=== PATIENT | female | born 1950 | race Caucasian/White ===

== ENCOUNTER 2019-03-28 17:40 | Emergency (ER) | payer OTHER ==
[~2019-03-28] VITALS: Ht 165.1 cm; Wt 52.2 kg
[~2019-03-28 17:40] MED LIST: LEVSOD100 PO; LOSA25 PO; METO25ER PO; VENL150ER PO
[2019-03-28 18:32] LABS: BASOPHILS ABSOLUTE AUTO 0.06 K/mm3 (0.00-0.23); BASOPHILS PERCENT AUTO 1 % (0-2); EOSINOPHILS ABSOLUTE AUTO 0.38 K/mm3 (0.00-0.68); EOSINOPHILS PERCENT AUTO 6 % (0-6); Hematocrit 48.1 % (33.0-51.0); Hemoglobin 16.5 g/dL (11.5-16.0); IMMATURE GRAN ABSOLUTE AUTO 0.02 K/mm3 (0.00-0.10); IMMATURE GRAN PERCENT AUTO 0 % (0-1); LYMPHOCYTES ABSOLUTE AUTO 2.23 K/mm3 (0.84-5.20); LYMPHOCYTES PERCENT AUTO 36 % (21-46); MONOCYTES PERCENT AUTO 7 % (4-13); Mean Corpuscular HGB 31.8 pg (26.0-34.0); Mean Corpuscular HGB Conc 34.3 g/dL (31.5-36.5); Mean Corpuscular Volume 93 fL (80-100); Mean Platelet Volume 9.7 fL (9.1-12.4); NEUTROPHILS ABSOLUTE AUTO 3.11 K/mm3 (1.96-9.15); NEUTROPHILS PERCENT AUTO 50 % (41-73); Platelet Count 259 K/mm3 (150-400); RDW Coefficient Variation 12.4 % (11.7-14.2); RDW Standard Deviation 42.8 fL (35.1-46.3); Red Blood Cell Count 5.19 M/mm3 (3.80-5.20)
[2019-03-28] MEDS ORDERED: Prednisone20 MG PO (18:44)
[2019-03-28] MEDS ORDERED: ALBU90OI INH (18:44)
[2019-03-28] MEDS ORDERED: Atrovent Inha12.9 GM INH (18:44)
[2019-03-28 18:54] LABS: Alanine Aminotransfer (ALT/SGP 17 U/L (12-78); Albumin, Blood 3.6 g/dL (3.4-5.0); Albumin/Globulin Ratio 1.1 (0.8-1.8); Alk Phos 120 U/L (50-136); Anion Gap 4 mmol/L (6-16); Aspartate Aminotrans (AST/SGOT 14 U/L (12-37); Bilirubin, Total 0.4 mg/dL (0.1-1.0); Blood Urea Nitrogen 8 mg/dL (8-24); Bun/Creatinine Ratio 9.4 (12.0-20.0); CO2, Blood 26 mmol/L (21-32); Calcium, Blood 9.2 mg/dL (8.5-10.1); Chloride, Blood 109 mmol/L (98-108); Creatinine, Blood 0.85 mg/dL (0.40-1.00); Globulin, Blood 3.4 g/dL (2.2-4.0); Glomerular Filtration Rate >60 (60-); Glucose, Blood 115 mg/dL (70-99); Potassium, Blood 4.1 mmol/L (3.5-5.5); Sodium, Blood 139 mmol/L (136-145); Troponin I 0.017 ng/mL (0.000-0.040)
== END 2019-03-28 19:54 | disposition home or self-care (01) ==
LOC: ER 17:40
PROVIDERS: Emergency Medicine
DX: J44.1 Chronic obstructive pulmonary disease with (acute) exacerbation (principal); E03.9 Hypothyroidism, unspecified; I10 Essential (primary) hypertension; F32.9 Major depressive disorder, single episode, unspecified; Z79.899 Other long term (current) drug therapy; Z87.891 Personal history of nicotine dependence; Z88.0 Allergy status to penicillin
CPT/HCPCS: 36415; 71046; 80053; 83880; 84484; 85025; 93005; 93010; 94640; 99284-25; J1100

== ENCOUNTER 2025-04-19 07:17 | Observation (INO) | payer OTHER ==
[~2025-04-19] VITALS: Ht 165.1 cm; Wt 46.2 kg
[~2025-04-19 07:17] MED LIST changes: +ACET500 PO; +AIRSUPRA 90-810.7 GM IH; +ALBU90OI INH; +ASPI81CH PO; +ATROVENT HFA12.9 GM INH; +Atrovent Inha12.9 GM INH; +DILT-XR120 M2 PO; +DULOXETINE HCL60 M1 PO; +EUTHYROX50 MC1 PO; +FORMOTEROL20 MCG/2 M INH; +Prednisone20 MG PO
[2025-04-19 08:23] LABS: BASOPHILS ABSOLUTE AUTO 0.04 K/mm3 (0.00-0.23); BASOPHILS PERCENT AUTO 1 % (0-2); EOSINOPHILS ABSOLUTE AUTO 0.24 K/mm3 (0.00-0.68); EOSINOPHILS PERCENT AUTO 3 % (0-6); Hematocrit 42.2 % (33.0-51.0); Hemoglobin 14.1 g/dL (11.5-16.0); IMMATURE GRAN ABSOLUTE AUTO 0.06 K/mm3 (0.00-0.10); IMMATURE GRAN PERCENT AUTO 1 % (0-1); LYMPHOCYTES ABSOLUTE AUTO 1.25 K/mm3 (0.84-5.20); LYMPHOCYTES PERCENT AUTO 16 % (21-46); MONOCYTES ABSOLUTE AUTO 0.35 K/mm3 (0.16-1.47); MONOCYTES PERCENT AUTO 4 % (4-13); Mean Corpuscular HGB Conc 33.4 g/dL (31.5-36.5); Mean Corpuscular Volume 99 fL (80-100); NEUTROPHILS ABSOLUTE AUTO 6.05 K/mm3 (1.96-9.15); NEUTROPHILS PERCENT AUTO 76 % (41-73); NRBC ABSOLUTE 0.00 K/mm3 (0.00-0.02); NRBC Auto 0.0 /100 WBC (0.0-0.2); Platelet Count 217 K/mm3 (150-400); RDW Coefficient Variation 13.7 % (11.7-14.2); RDW Standard Deviation 50.4 fL (35.1-46.3)
[2025-04-19 08:32] LABS: Alanine Aminotransfer (ALT/SGP 52.0 U/L (12-78); Albumin, Blood 3.3 g/dL (3.4-5.0); Albumin/Globulin Ratio 1.3 (0.8-1.8); Anion Gap 8.0 mmol/L (3-11); Aspartate Aminotrans (AST/SGOT 43.0 U/L (12-37); Bilirubin, Total 0.4 mg/dL (0.1-1.0); Blood Urea Nitrogen 19.0 mg/dL (8-24); CO2, Blood 26.0 mmol/L (21-32); Calcium, Blood 8.5 mg/dL (8.5-10.1); Chloride, Blood 108.0 mmol/L (98-108); Creatinine, Blood 1.09 mg/dL (0.40-1.00); Globulin, Blood 2.5 g/dL (2.2-4.0); Glucose, Blood 125.0 mg/dL (70-99); Potassium, Blood 4.0 mmol/L (3.5-5.5); Sodium, Blood 138.0 mmol/L (136-145); Total Protein, Blood 5.8 g/dL (6.4-8.2)
[2025-04-19] MEDS ORDERED: Ondansetron HCl 2 MG / ML 2ML Vial IV PRN (13:55)
[2025-04-19] MEDS ORDERED: FLU VACC TS2025(65UP)/MF59C/PF 45 MCG/0.5 ML SYRINGE IM SCH (13:55)
[2025-04-19 14:54] VITALS: BP 155/92
--- NOTE | 2025-04-19 14:56 | NUR ---
ARRIVAL PATIENT ARRIVES TO UNIT AND ABLE TO TRANSFER TO OUR BED VIA STAND BY ASSSIT. PATIENT VITAL SIGNS STABLE. ENDORSES CHEST PAIN RIGHT IN THE CENTER AND FEELING SHORT OF BREATH. SATTING >92% AND PLACED ON 1 LITER OXYGEN FOR COMFORT. THIS RN TO SEE IF PATIENT HAS ANYTHING FOR CHEST PAIN AND TO CALL PROVIDER. PATIENT ORIENTED TO ROOM,CALL LIGHT WITHIN REACH, BED IN LOWEST LOCKED POSITION AND STATING NOTHING ELSE IS NEEDED AT THIS TIME.
[2025-04-19] MEDS ORDERED: Ipratropium Bromide INH 0.02% 0.5 mg/2.5ML Vial INH SCH ×2 (16:20→16:50)
[2025-04-19] MEDS ORDERED: Albuterol 2.5 MG/3 ML VIAL INH SCH (16:20)
--- NOTE | 2025-04-19 16:24 | NUR ---
SHIFT SUMMARY PT OAX4, COOPERATIVE, ABLE TO MAKE NEEDS KNOWN. PT IS PLEASANT. DOES REPORT CHEST PAIN WHICH IS ADMISSION. ON ROOM AIR. TOELRATING MEDICATIONS. BED IN LOWEST POSITION, CALL LIGHT WITHIN REACH. CODE STATUS CHANGED THIS SHIFT, PALLIATIVE CARE ORDER PLACED.
[2025-04-19 16:38] VITALS: BP 148/94
[2025-04-19] MEDS ORDERED: Isosorbide Mononitrate 60 MG TABCR PO SCH (17:00)
[2025-04-19 19:32] VITALS: BP 96/59
[2025-04-20 00:04] VITALS: BP 97/62
[2025-04-20 04:19] VITALS: BP 118/75
[2025-04-20 04:36] LABS: Anion Gap 7.0 mmol/L (3-11); Blood Urea Nitrogen 21.0 mg/dL (8-24); CO2, Blood 26.0 mmol/L (21-32); Calcium, Blood 8.6 mg/dL (8.5-10.1); Chloride, Blood 108.0 mmol/L (98-108); Creatinine, Blood 1.06 mg/dL (0.40-1.00); Glucose, Blood 105.0 mg/dL (70-99); Potassium, Blood 3.9 mmol/L (3.5-5.5); Sodium, Blood 137.0 mmol/L (136-145)
--- NOTE | 2025-04-20 05:19 | NUR ---
SHIFT SUMMARY PATIENT VERY PLEASANT. A/OX4. SR ON MONITOR. VSS. PATIENT DENIED CP, CHEST PRESSURE, OR SOB. MILD SOB AFTER WALKING TO RR IN AM. VOIDING CLEAR LEONOR URINE. PT [place]MER PO INTAKE WELL. PATIENT ABLE TO MOVE HERSELF ABOUT IN BED. SBA IN ROOM. ABLE TO MAKE NEEDS KNOWN. USING CALL LIGHT APPROPRIATELY. BED IN LOWEST POSITION. PLAN OF CARE ONGOING.
--- NOTE | 2025-04-20 07:43 | NUR ---
ASSUMPTION NOTE: THIS RN TO ASSUME CARE OF PATIENT. PATIENT AWAKE IN BED,DRINKING COFFEE. PATIENT DENIED CHEST PAIN/PRESSURE. NO SHORTNESS OF BREATH, STATED SHE JUST GOT HER BREATHING TREATMENT. ASKED FOR A SHOWER LATER ON TODAY. PATIENT VITAL SIGNS STABLE, HAS CALL LIGHT WITHIN REACH, BED IN LOWEST LOCKED POSITION STATING NOTHING ELSE IS NEEDED AT THIS TIME.
[2025-04-20 07:45] VITALS: BP 117/75
--- NOTE | 2025-04-20 08:41 | NUR ---
MD CALLED: THIS RN LEFT A VOICEMAIL FOR MD REGARDING [facility], AWAITING RETURN PHONE CALL.
[2025-04-20] MEDS ORDERED: Enoxaparin 30 MG/0.3 ML SYR SC SCH (09:00)
[2025-04-20] MEDS ORDERED: DULoxetine HCL 60 MG Capsule DR PO SCH (09:00)
[2025-04-20] MEDS ORDERED: Isosorbide Mono30 MG PO (11:28)
[2025-04-20 12:26] VITALS: BP 133/89
--- NOTE | 2025-04-20 13:40 | NUR ---
DISCHARGE: PATIENT IS ALERT AND ORIENTED X4 & COOPERATIVE WITH HER CARE. WENT OVER DISCHARGE PACKET WITH PATIENT AND FAMILY AT BEDSIDE. IV TAKEN OUT AND TELE REMOVED. PATIENT TOOK ALL PERSONAL BELONGINGS AND AWARE TO FOLLOW UP WITH SCHEDULED PRIMARY CARE PROVIDER APPOINTMENT.
== END 2025-04-20 13:47 | disposition home or self-care (01) ==
LOC: ER 07:17 → PCU 07:18
PROVIDERS: Physician Assistant; ADMIT Internal Medicine
DX: I51.81 Takotsubo syndrome (principal); R79.89 Other specified abnormal findings of blood chemistry; I10 Essential (primary) hypertension; J44.9 Chronic obstructive pulmonary disease, unspecified; E03.9 Hypothyroidism, unspecified; Z87.891 Personal history of nicotine dependence; Z88.0 Allergy status to penicillin; Z79.899 Other long term (current) drug therapy; Z66 Do not resuscitate
CPT/HCPCS: 36415; 71046; 71260; 80048; 80053; 83880; 84484; 85025; 93005; 93010; 94640; 94664; 94760; 96372; 99285-25; A9270; G0378; J1650; Q9967

== ENCOUNTER 2025-05-16 07:40 | Emergency (ER) | payer OTHER ==
[~2025-05-16] VITALS: Ht 165.1 cm; Wt 48.5 kg
[~2025-05-16 07:40] MED LIST changes: +Isosorbide Mono30 MG PO
[2025-05-16] MEDS ORDERED: Ipratropium/Albuterol SulF 2.5-0.5MG/3 ML Amp INH ONE (08:00)
[2025-05-16 08:04] LABS: BASOPHILS ABSOLUTE AUTO 0.04 K/mm3 (0.00-0.23); BASOPHILS PERCENT AUTO 1 % (0-2); EOSINOPHILS ABSOLUTE AUTO 0.21 K/mm3 (0.00-0.68); EOSINOPHILS PERCENT AUTO 4 % (0-6); Hematocrit 46.5 % (33.0-51.0); Hemoglobin 15.1 g/dL (11.5-16.0); IMMATURE GRAN ABSOLUTE AUTO 0.02 K/mm3 (0.00-0.10); IMMATURE GRAN PERCENT AUTO 0 % (0-1); LYMPHOCYTES ABSOLUTE AUTO 1.24 K/mm3 (0.84-5.20); LYMPHOCYTES PERCENT AUTO 25 % (21-46); MONOCYTES ABSOLUTE AUTO 0.25 K/mm3 (0.16-1.47); MONOCYTES PERCENT AUTO 5 % (4-13); Mean Corpuscular HGB Conc 32.5 g/dL (31.5-36.5); Mean Corpuscular Volume 100 fL (80-100); NEUTROPHILS ABSOLUTE AUTO 3.28 K/mm3 (1.96-9.15); NEUTROPHILS PERCENT AUTO 65 % (41-73); NRBC ABSOLUTE 0.00 K/mm3 (0.00-0.02); NRBC Auto 0.0 /100 WBC (0.0-0.2); Platelet Count 222 K/mm3 (150-400); RDW Coefficient Variation 13.3 % (11.7-14.2); RDW Standard Deviation 49.9 fL (35.1-46.3)
[2025-05-16 08:28] LABS: Alanine Aminotransfer (ALT/SGP 31.0 U/L (12-78); Albumin, Blood 3.2 g/dL (3.4-5.0); Albumin/Globulin Ratio 1.2 (0.8-1.8); Anion Gap 8.0 mmol/L (3-11); Aspartate Aminotrans (AST/SGOT 43.0 U/L (12-37); Bilirubin, Total 0.6 mg/dL (0.1-1.0); Blood Urea Nitrogen 15.0 mg/dL (8-24); CO2, Blood 23.0 mmol/L (21-32); Calcium, Blood 8.7 mg/dL (8.5-10.1); Chloride, Blood 113.0 mmol/L (98-108); Creatinine, Blood 0.96 mg/dL (0.40-1.00); Globulin, Blood 2.7 g/dL (2.2-4.0); Glucose, Blood 136.0 mg/dL (70-99); Potassium, Blood 4.8 mmol/L (3.5-5.5); Sodium, Blood 139.0 mmol/L (136-145); Total Protein, Blood 5.9 g/dL (6.4-8.2)
[2025-05-16] MEDS ORDERED: Zithromax250 MG PO (12:27)
[2025-05-16] MEDS ORDERED: Prednisone20 MG PO (12:27)
[2025-05-16 13:27] VITALS: BP 107/63
== END 2025-05-16 13:29 | disposition home or self-care (01) ==
LOC: ER 07:40
PROVIDERS: Emergency Medicine
DX: J44.1 Chronic obstructive pulmonary disease with (acute) exacerbation (principal); I10 Essential (primary) hypertension; E03.9 Hypothyroidism, unspecified; Z87.898 Personal history of other specified conditions; Z87.891 Personal history of nicotine dependence; Z79.82 Long term (current) use of aspirin; Z79.899 Other long term (current) drug therapy; Z88.0 Allergy status to penicillin
CPT/HCPCS: 71046; 80053; 83880; 84484; 85025; 99285-25; A9270

== ENCOUNTER 2025-06-07 09:57 | Emergency (ER) | payer OTHER ==
[~2025-06-07] VITALS: Ht 165.1 cm; Wt 47.2 kg
[~2025-06-07 09:57] MED LIST changes: +Zithromax250 MG PO
[2025-06-07] MEDS ORDERED: Albuterol 2.5 MG/3 ML VIAL INH SCH (10:15)
[2025-06-07 10:27] LABS: BASOPHILS ABSOLUTE AUTO 0.05 K/mm3 (0.00-0.23); BASOPHILS PERCENT AUTO 1 % (0-2); EOSINOPHILS ABSOLUTE AUTO 0.15 K/mm3 (0.00-0.68); EOSINOPHILS PERCENT AUTO 3 % (0-6); Hematocrit 47.2 % (33.0-51.0); Hemoglobin 15.4 g/dL (11.5-16.0); IMMATURE GRAN ABSOLUTE AUTO 0.02 K/mm3 (0.00-0.10); IMMATURE GRAN PERCENT AUTO 0 % (0-1); LYMPHOCYTES ABSOLUTE AUTO 1.95 K/mm3 (0.84-5.20); LYMPHOCYTES PERCENT AUTO 43 % (21-46); MONOCYTES ABSOLUTE AUTO 0.26 K/mm3 (0.16-1.47); MONOCYTES PERCENT AUTO 6 % (4-13); Mean Corpuscular HGB Conc 32.6 g/dL (31.5-36.5); Mean Corpuscular Volume 100 fL (80-100); NEUTROPHILS ABSOLUTE AUTO 2.06 K/mm3 (1.96-9.15); NEUTROPHILS PERCENT AUTO 46 % (41-73); NRBC ABSOLUTE 0.00 K/mm3 (0.00-0.02); NRBC Auto 0.0 /100 WBC (0.0-0.2); Platelet Count 233 K/mm3 (150-400); RDW Coefficient Variation 13.5 % (11.7-14.2); RDW Standard Deviation 50.4 fL (35.1-46.3)
[2025-06-07 10:49] LABS: Alanine Aminotransfer (ALT/SGP 33.0 U/L (12-78); Albumin, Blood 3.6 g/dL (3.4-5.0); Albumin/Globulin Ratio 1.2 (0.8-1.8); Anion Gap 9.0 mmol/L (3-11); Aspartate Aminotrans (AST/SGOT 60.0 U/L (12-37); Bilirubin, Total 0.6 mg/dL (0.1-1.0); Blood Urea Nitrogen 11.0 mg/dL (8-24); CO2, Blood 23.0 mmol/L (21-32); Calcium, Blood 9.4 mg/dL (8.5-10.1); Chloride, Blood 109.0 mmol/L (98-108); Creatinine, Blood 1.01 mg/dL (0.40-1.00); Globulin, Blood 3.0 g/dL (2.2-4.0); Glucose, Blood 221.0 mg/dL (70-99); Potassium, Blood 5.1 mmol/L (3.5-5.5); Sodium, Blood 136.0 mmol/L (136-145); Total Protein, Blood 6.6 g/dL (6.4-8.2)
[2025-06-07] MEDS ORDERED: Ketorolac Tromethamine 15mg Vial IV ONE (10:50)
[2025-06-07 11:01] LABS: pH Blood Venous 7.22 (7.34-7.37)
[2025-06-07 11:13] LABS: Influenza A, PCR NEGATIVE (NEGATIVE); Influenza B, PCR NEGATIVE (NEGATIVE); Resp Syncytial Virus, PCR NEGATIVE (NEGATIVE); SARS-Cov-2 (COVID-19) PCR, MMC NEGATIVE (NEGATIVE)
[2025-06-07] MEDS ORDERED: LEVAQUIN750 MG PO (13:07)
[2025-06-07] MEDS ORDERED: PRED20 PO (13:07)
[2025-06-07 13:30] VITALS: BP 109/62
== END 2025-06-07 13:40 | disposition home or self-care (01) ==
LOC: ER 09:57
PROVIDERS: Student in an Organized Health Care Education/Training Program
DX: J44.1 Chronic obstructive pulmonary disease with (acute) exacerbation (principal); I10 Essential (primary) hypertension; F17.200 Nicotine dependence, unspecified, uncomplicated
CPT/HCPCS: 71045; 80053; 82803; 85025; 87637; 93005; 93010; 96374; 99285-25; J1885